=== PATIENT | female | born 2000 | race Caucasian/White ===

== ENCOUNTER → 2023-05-29 | Outpatient (CLI) | payer BC ==
--- NOTE | 2023-05-29 16:17 | FL ---
EXAMINATION TYPE: FL hysterosalpingography DATE OF EXAM: 05/29/2023 2:40 PM CLINICAL INDICATION:Female, 22 years old with history of N97.9 FEMALE INFERTILITY. COMPARISON: None TECHNIQUE: The patient was draped in a sterile technique. A speculum examination was performed to bairon ntify the cervical os and no abnormal cervical discharge was noted. A 5-Mexican catheter was inserted past the cervix and its balloon insufflated. The speculum was then removed and under fluoroscopic gu idance 5 mL of Isovue 370 was injected into the endometrial cavity. Frontal and oblique fluoroscopic images were obtained, the balloon deflated, and catheter removed. A preprocedural fluoroscopic imag e of the pelvis was obtained. Fluoroscopic time: 8 seconds Fluoroscopic images: 0 Radiographs taken: 5 DAP: Not reported [id number] FINDINGS: Low Voltage Technician view of the pelvis demonstrates no acute process or osseous abnormality. Uterus: The endometrium demonstrates The morphology of the opacified uterine cavity does not reveal a ny obvious filling defect such as any septum. . Right fallopian tube: The right fallopian tube has a normal appearance and demonstrates extravasation of contrast into the pelvis. Left fallopian tube: The left fallopian tube has a normal appearance and demonstrates extravasation o f contrast into the pelvis. Contrast was seen in both Fallopian tubes with normal spillage into the pelvis bilaterally. IMPRESSION: Patent fallopian tubes with free spillage of contrast bilaterally.
== END | disposition home or self-care (01) ==
LOC: RADUSWWP 13:28
PROVIDERS: ATTEND Obstetrics & Gynecology Obstetrics
DX: N97.9 Female infertility, unspecified (principal)
CPT/HCPCS: 58340; 74740; Q9967